=== PATIENT | female | born 1975 | race African-American/Black ===

== ENCOUNTER 2023-10-30 09:38 | Emergency (ER) | payer MEDICAID ==
[~2023-10-30] VITALS: Ht 147.3 cm; Wt 58.5 kg
[2023-10-30 09:47] VITALS: BP 120/73; TEMP 101.1; O2SAT 100
== END 2023-10-30 09:59 | disposition home or self-care (01) ==
LOC: ER 09:43
DX: B34.9 Viral infection, unspecified (principal); J45.909 Unspecified asthma, uncomplicated